=== PATIENT | female | born 2000 | race Caucasian/White ===

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

== ENCOUNTER 2019-05-27 17:13 | Emergency (ER) | payer BC, MEDICAID ==
[~2019-05-27] VITALS: Ht 165.1 cm; Wt 101.0 kg
[2019-05-27 18:15] LABS: URINE HCG NEGATIVE (NEG)
[2019-05-27 18:23] LABS: CLARITY,URINE CLEAR (Clear); COLOR,URINE YELLOW (Yellow); GLUCOSE, URINE NEGATIVE (Neg); KETONES,URINE TRACE mg/dl (Neg); LEUKOCYTE ESTERASE ,URINE NEGATIVE (Neg); NITRITES, URINE NEGATIVE (Neg); OCCULT BLOOD,URINE TRACE-INTACT (Neg); PH,URINE 5.5 (4.8-8.0); PROTEIN,URINE NEGATIVE (Neg); UROBILINOGEN,URINE 0.2 E.U/dL (0.2-1.0)
[2019-05-27 18:25] LABS: UA COLLECTION TYPE CLN CATCH MIDSTREAM
[2019-05-27 18:30] LABS: BASOPHILS % (AUTO) 0.4 % (0-1); EOSINOPHILS % (AUTO) 0.3 % (0-6); HEMATOCRIT 37.2 % (35.0-45.0); HEMOGLOBIN 12.2 g/dl (12.0-16.0); LYMPHOCYTES # (AUTO) 2.3 X10'3 (1.1-4.8); MEAN CORPUSCULAR HEMOGLOBIN 25.5 PG (27.0-31.0); MEAN CORPUSCULAR HGB CONC 32.7 g/dL (33.0-36.5); MEAN CORPUSCULAR VOLUME 78.1 FL (78-98); MONOCYTES # (AUTO) 0.5 X10'3 (0-0.9); MONOCYTES % (AUTO) 6.4 % (2-12); NEUTROPHILS # (AUTO) 5.6 X10'3 (1.8-7.7); NEUTROPHILS % (AUTO) 65.9 % (42-75); PLATELET COUNT 327 X10'3 (140-440); RED BLOOD COUNT 4.77 X10'6 (4.20-5.60); RED CELL DISTRIBUTION WIDTH 14.2 % (11.5-14.5); WHITE BLOOD COUNT 8.5 X10'3 (4.5-11.0)
[2019-05-27 18:33] LABS: BACTERIA,URINE FEW /HPF (Neg); MUCUS STRANDS MODERATE /LPF (Neg); RBC,URINE 0-2 /HPF (0-2); SQUAMOUS EPITHELIAL CELL,UR FEW /LPF (FEW); WBC,URINE 0-4 /HPF (0-4)
[2019-05-27 18:44] LABS: ALANINE AMINOTRANSFERASE 70 U/L (12-78); ALBUMIN/GLOBULIN RATIO 0.9 (1.1-1.5); ALKALINE PHOSPHATASE 105 IU/L (20-180); ANION GAP 7 (8-16); ASPARTATE AMINO TRANSFERASE 37 U/L (10-37); BILIRUBIN,TOTAL 0.4 MG/DL (0.1-1.0); BLOOD UREA NITROGEN 8 MG/DL (7-18); BUN/CREATININE RATIO 12.7 (6.6-38.0); CALCIUM 9.1 MG/DL (8.5-10.1); CHLORIDE 105 MMOL/L (99-107); CREATININE 0.63 MG/DL (0.40-0.90); GLUCOSE 81 MG/DL (70-104); LIPASE 62 U/L (73-393); POTASSIUM 3.9 MMOL/L (3.5-5.1); SODIUM 139 MMOL/L (135-145); TOTAL CARBON DIOXIDE 27.2 MMOL/L (24-32); TOTAL PROTEIN 8.6 G/DL (6.4-8.2); eGFR > 90 ML/MIN
[2019-05-27] MEDS ORDERED: ondansetron 4mg rapidly disintigrating tab PO ONE (19:30)
[2019-05-27] MEDS ORDERED: ONDA4TAB6 PO (19:38)
[2019-05-27 19:50] VITALS: BP 131/87
== END 2019-05-27 19:53 | disposition home or self-care (01) ==
LOC: ER 17:14
DX: R10.11 Right upper quadrant pain (principal); R11.2 Nausea with vomiting, unspecified; Z88.6 Allergy status to analgesic agent
CPT/HCPCS: 36415; 80053; 81001; 81025; 83690; 85025; 99283

== ENCOUNTER 2019-09-12 01:32 | Emergency (ER) | payer BC ==
[~2019-09-12] VITALS: Ht 165.1 cm; Wt 90.9 kg
[~2019-09-12 01:32] MED LIST changes: +ONDA4TAB6 PO
[2019-09-12 02:22] LABS: CLARITY,URINE CLEAR (Clear); COLOR,URINE YELLOW (Yellow); GLUCOSE, URINE NEGATIVE (Neg); KETONES,URINE NEGATIVE (Neg); LEUKOCYTE ESTERASE ,URINE NEGATIVE (Neg); NITRITES, URINE NEGATIVE (Neg); OCCULT BLOOD,URINE LARGE (Neg); PROTEIN,URINE NEGATIVE (Neg); UROBILINOGEN,URINE 0.2 E.U/dL (0.2-1.0)
[2019-09-12 02:24] LABS: BASOPHILS % (AUTO) 0.5 % (0-1); EOSINOPHILS # (AUTO) 0.1 X10'3 (0-0.9); EOSINOPHILS % (AUTO) 0.6 % (0-6); HEMATOCRIT 39.1 % (35.0-45.0); HEMOGLOBIN 12.9 g/dl (12.0-16.0); LYMPHOCYTES # (AUTO) 3.2 X10'3 (1.1-4.8); LYMPHOCYTES % (AUTO) 33.1 % (21-51); MEAN CORPUSCULAR HEMOGLOBIN 25.7 PG (27.0-31.0); MEAN CORPUSCULAR HGB CONC 33.1 g/dL (33.0-36.5); MEAN CORPUSCULAR VOLUME 77.6 FL (78-98); MEAN PLATELET VOLUME 8.1 FL (7.4-10.4); MONOCYTES # (AUTO) 0.6 X10'3 (0-0.9); MONOCYTES % (AUTO) 6.3 % (2-12); NEUTROPHILS # (AUTO) 5.8 X10'3 (1.8-7.7); NEUTROPHILS % (AUTO) 59.5 % (42-75); PLATELET COUNT 339 X10'3 (140-440); RED BLOOD COUNT 5.04 X10'6 (4.20-5.60); RED CELL DISTRIBUTION WIDTH 15.2 % (11.5-14.5); WHITE BLOOD COUNT 9.7 X10'3 (4.5-11.0)
[2019-09-12 02:26] LABS: UA COLLECTION TYPE CLN CATCH MIDSTREAM
[2019-09-12 02:27] LABS: BACTERIA,URINE NONE SEEN /HPF (Neg); RBC,URINE 0-2 /HPF (0-2); SQUAMOUS EPITHELIAL CELL,UR FEW /LPF (FEW); WBC,URINE NONE SEEN /HPF (0-4)
[2019-09-12 02:36] LABS: ALANINE AMINOTRANSFERASE 60 U/L (12-78); ALBUMIN 3.8 G/DL (3.4-5.0); ALBUMIN/GLOBULIN RATIO 0.9 (1.1-1.5); ALKALINE PHOSPHATASE 108 IU/L (20-180); ANION GAP 8 (8-16); ASPARTATE AMINO TRANSFERASE 27 U/L (10-37); BILIRUBIN,TOTAL 0.3 MG/DL (0.1-1.0); BLOOD UREA NITROGEN 10 MG/DL (7-18); BUN/CREATININE RATIO 13.2 (6.6-38.0); CALCIUM 9.1 MG/DL (8.5-10.1); CHLORIDE 107 MMOL/L (99-107); CREATININE 0.76 MG/DL (0.40-0.90); GLUCOSE 93 MG/DL (70-104); POTASSIUM 3.5 MMOL/L (3.5-5.1); SODIUM 142 MMOL/L (135-145); TOTAL CARBON DIOXIDE 27.3 MMOL/L (24-32); TOTAL PROTEIN 8.2 G/DL (6.4-8.2); eGFR > 90 ML/MIN
[2019-09-12 02:42] LABS: URINE HCG NEGATIVE (NEG)
--- NOTE | 2019-09-12 02:45 | NUR ---
PT STATES THAT SHE HAS HAD PSYCHIATRIC MEDICATIONS PRESCRIBED TO HER IN THE PAST, BUT SHE REFUSES TO TAKE THEM STATING THE MESSED WITH HER CONCENTRATION IN SCHOOL.
[2019-09-12 02:46] LABS: ETHANOL < 0.010 GM/DL (0.0-0.010)
[2019-09-12] MEDS ORDERED: NO HOME MEDS (02:47)
[2019-09-12 03:00] LABS: URINE AMPHETAMINE SCREEN NEGATIVE (Neg); URINE BARBITUATE SCREEN NEGATIVE (Neg); URINE BENZODIAZEPINES SCREEN NEGATIVE (Neg); URINE CANNABINOID SCREEN NEGATIVE (Neg); URINE COCAINE SCREEN NEGATIVE (Neg); URINE METHADONE SCREEN NEGATIVE (Neg); URINE OPIATE SCREEN NEGATIVE (Neg); URINE PHENCYCLIDINE SCREEN NEGATIVE (Neg)
--- NOTE | 2019-09-12 03:03 | NUR ---
Pt gives permission to discuss condition with her fiance, Emeli Yost . Pt does not want other members of her family to be given information at this time. Pt also states that she goes by the name. "Cora Melendez"
--- NOTE | 2019-09-12 06:40 | NUR ---
Patient is r esting in bed peacefully at this time. No distress observed. Patient has been moved over from the main ER to overflow. Will continue to monitor.
--- NOTE | 2019-09-12 08:33 | NUR ---
Patient wakes up to eat breakfast and requests a tampon. This request is accomodated. Patient is seen ambulating self to the bathroom. No distress observed.
--- NOTE | 2019-09-12 09:08 | NUR ---
Identifies as he/him pronouns and prefers to be called Floyd. Patient states that he has a hx of hospitalization and suicide attempts, last hospitalization was 2017. He reports that he was sent to a school to try to help with his mental states, and he states, "I thought I was past the suicidal ideations, I guess I am not". He reports intrusive thoughts of wanting to OD. He states that this is the best way to commit suicide. Denies any A/VH and states that he does sometimes does see "other rhealms when I am in ritual with my piotr iniguez, and they see the other rhealms too". Denies HI and states that the SI is constant and "never really goes away. I just got engaged on , and last night I was looking at a bottle of pills, got caught up in my thoughts, starting pouring out the pills to take them and then poured them back in the bottle, closed it and threw it across the room and called my family."
--- NOTE | 2019-09-12 10:08 | NUR ---
Patient is observed sitting up in bed talking on the phone. No distress observed.
--- NOTE | 2019-09-12 11:25 | NUR ---
primary nurse on break. pt is resing on her right side and is in no distress. rr even and unlabored.
--- NOTE | 2019-09-12 11:54 | NUR ---
Patient's Emeli ma at bedside, visiting with patient. No distress observed.
--- NOTE | 2019-09-12 12:14 | NUR ---
Sienna [facility] is at bedside evaluating patient.
--- NOTE | 2019-09-12 12:56 | NUR ---
pt wants any information released if requested to her parents mehnaz and chelita cr.
--- NOTE | 2019-09-12 13:58 | NUR ---
Patients fiance continues to be at bedside.
--- NOTE | 2019-09-12 14:12 | NUR ---
Patient is discharged from the unit ambulating self, no distress observed. Patient reprots that she still has SI and that these thoughts do not go away. Still plans to use overdose as the modality. She denies HI, A/VH. Discharge paperwork discussed with patient. questions were answered and patient verbalized unsderstanding. All items inventoried and in patients possession at time of discharge. Patient is a non-smoker.
[2019-09-12 14:17] VITALS: BP 121/78
== END 2019-09-12 14:15 ==
LOC: ER 01:33
DX: R45.851 Suicidal ideations (principal); F41.9 Anxiety disorder, unspecified; F31.9 Bipolar disorder, unspecified; F44.9 Dissociative and conversion disorder, unspecified; Z60.2 Problems related to living alone; Z88.8 Allergy status to other drugs, medicaments and biological substances; Z91.018 Allergy to other foods
CPT/HCPCS: 36415; 80053; 80305; 80320; 81001; 81025; 84443; 85025; 99285

== ENCOUNTER 2019-09-12 13:00 | Inpatient (IN) | payer BC ==
[~2019-09-12] VITALS: Ht 167.6 cm; Wt 107.3 kg
[~2019-09-12 13:00] MED LIST changes: +NO HOME MEDS
[2019-09-12] MEDS ORDERED: mag hydrox/Alum hydrox/simeth 30ml oral suspension PO PRN (14:05)
[2019-09-12] MEDS ORDERED: magnesium hydroxide 30ml (MOM) UD suspension PO PRN (14:05)
[2019-09-12] MEDS ORDERED: traZODone 50mg tablet PO PRN (14:05)
[2019-09-12] MEDS ORDERED: acetaminophen 325mg tablet PO PRN ×2 (14:05)
[2019-09-12] MEDS ORDERED: loperamide 2mg capsule PO PRN (14:05)
--- NOTE | 2019-09-12 14:44 | NUR ---
Admit note: Pt admitted to [facility] at 1420 on 5150 for DTS. Pt having suicidal thoughts with a plan to overdose. Pt states there are multiple medications at home to overdose on. Pt unable to develop a plan to remain safe in community. Pt has history of Bipolar, anxiety, Aspergers, depression, Borderline personality disorder, dissociative disorder.
[2019-09-12 17:20] VITALS: BP 140/77
--- NOTE | 2019-09-12 17:49 | NUR ---
Nursing Progress Note: LANIE MAGANA Legal hold: 5150 Client on involuntary status for DTS Report received from nurse with use of SBAR: DEBBIE Velez Why are they here: Pt admitted to [facility] at 1420 on 5150 for DTS. Pt having suicidal thoughts with a plan to overdose. Pt states there are multiple medications at home to overdose on. Pt unable to develop a plan to remain safe in community. Pt has history of Bipolar, anxiety, Aspergers, depression, Borderline personality disorder, dissociative disorder. Assessment What has happened this shift: Pt was calm and cooperative with 1:1 assessment at bedside. Answered most questions appropriately. States, This is not my first rodeo and spoke of the many hospitalizations he has had. When talking about mother pt will become defensive, pressured, sarcastic and condescending. He reports being the black sheep of the family stating that his mother and father paid a lot of money to make my twin siblings who are their pride and awilda and that he knows they wish he would just disappear. Pt spoke of being sent to [place] for a conversion school where they grouped all the gays together so we just had lots of sex and bullshitted our way through the therapy crap. 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 Pt reports recently getting engaged and plans on her moving in soon. Has two therapy cats at home and inquires whether fiance can bring them to visit. Pt advised of unit rules. Pt reports he doesnt feel safe if he left this building and will likely attempt to end his life in any means possible. Main concerns are mother who is intrusive, demanding and doesnt understand or care to understand me. Pt reports, My mother is threatening to have me conserved because my house is dirty. Pt admits that his house is filthy and he needs to clean it but has been unable to d/t lack of energy r/t current depression. RN educated pt on criteria for LPS. Pt is irritated that mother expects him to thrive on allowance of $200/month. Denies any current needs at this time. S/I, H/I: Confirms SI with plan to OD A/VH: Denies Sleep: n/a ADL's: independent Group attendance: n/a Were meds taken: n/a Any med S/E: n/a Mental Status Exam Appearance: clean, good hygiene, glasses Eye contact: Direct Behavior: cooperative Speech: Soft, normal rate & rhythm Mood: depressed Affect: congruent Thought process: linear Thought Content: depression, mother, fiance, cats Cognition: A&O X4 Insight: Good Judgment: Poor Interventions PRN's used: none Therapeutic interventions: Ensured contract for safety, maintained a safe and supportive environment, provided clear and simple instructions, monitored behaviors and need for intervention, encouraged independent performance of ADLs, maintained fall precautions, and maintained Q 15min safety checks. Restraints/seclusion/emergency medication: N/A Justification of Continued Inpatient Treatment: Pt. continues to require a safe and supportive environment and medication adjustments for stabilization to prevent rehospitalization.
[2019-09-12 19:30] VITALS: BP 145/81
--- NOTE | 2019-09-13 03:46 | NUR ---
Nursing Progress Note: LANIE MAGANA Legal hold: 5150 Client on involuntary status for DTS Report received from nurse with use of SBAR: DEBBIE Velez Why are they here: Pt admitted to [facility] at 1420 on 5150 for DTS. Pt having suicidal thoughts with a plan to overdose. Pt states there are multiple medications at home to overdose on. Pt unable to develop a plan to remain safe in community. Pt has history of Bipolar, anxiety, Aspergers, depression, Borderline personality disorder, dissociative disorder. Assessment What has happened this shift: Pt up on unit in group room doing a puzzle at start of shift. Vague answers admits Depression and SI but no plan. Demeanor incongruent while endorsing SI smiling and laughing. Pt not willing to talk much this shift. Did not take any medications only has PRN medications ordered. S/I, H/I: Confirms SI A/VH: Denies Sleep: Asleep at this time ADL's: independent Group attendance: n/a Were meds taken: n/a Any med S/E: n/a Mental Status Exam Appearance: clean, good hygiene, glasses Eye contact: Direct Behavior: cooperative Speech: Soft, normal rate & rhythm Mood: depressed Affect: incongruent Thought process: linear Thought Content: depression, mother, fiance, cats Cognition: A&O X4 Insight: Good Judgment: Poor Interventions PRN's used: none Therapeutic interventions: Ensured contract for safety, maintained a safe and supportive environment, provided clear and simple instructions, monitored behaviors and need for intervention, encouraged independent performance of ADLs, maintained fall precautions, and maintained Q 15min safety checks. Restraints/seclusion/emergency medication: N/A Justification of Continued Inpatient Treatment: Pt. continues to require a safe and supportive environment and medication adjustments for stabilization to prevent rehospitalization.
[2019-09-13 07:00] VITALS: BP 113/64
[2019-09-13] MEDS: hydrOXYzine 25 MG tablet PO PRN (11:08)
[2019-09-13 12:56] LABS: CHOL/HDL RATIO 4.8 (0.00-4.99); CHOLESTEROL 149 MG/DL (0-200); HDL CHOLESTEROL 31 MG/DL (35-60); LDL CHOLESTEROL 105 MG/DL (50-100); TRIGLYCERIDES 121 MG/DL (20-135)
--- NOTE | 2019-09-13 15:40 | NUR ---
PSYCHOSOCIAL ASSESSMENT Erin is a 18 y/o female who prefers to be called "Floyd" and referred to as a male. Floyd has been living in an apartment that is paid for by his parents who live in [place]. Floyd graduated from a residential care program in [place] and moved to [place] to attend [employer]. He initially lived in the dorms and was kicked out 6 weeks later. He was previously kicked out of another living situation due to her poor cleanliness. Floyd reported someone had left a bottle of medication at his apartment and he poured the pills in his hand and realized what he had done. He then called his grandparents in [place] who called police. He was unable to identify a precipitant and reported chronic suicidal ideation. He reported feeling quite "hopeless". Throughout the conversation he blamed his parents and reported his mom is controlling and does not like his jacob friends. He was worried about staying in the hospital for 30 days and worried he would get transferred to a facility in [place]. Floyd was quite dramatic in his presentation as well as blunt and bordered on being rude to physician underwriter. It is unclear if Floyd will be able to return to his apartment. His mother reported it was filthy and Floyd reported it may be considered "uninhabitable". Floyd currently does not have a mental health provider. He was seeing a therapist at one point at [facility]. LES [place] Addendum: 09/13/19 at 1541 by Bee Jiménez SS Amended: Links added.
--- NOTE | 2019-09-13 16:09 | NUR ---
Nursing Progress Note: CHUYSNEHA MAGANA Legal hold: 5150 Client on involuntary status for DTS Report received from nurse with use of SBAR: FREDERICK Velez Why are they here: Pt admitted to [facility] at 1420 on 5150 for DTS. Pt having suicidal thoughts with a plan to overdose. Pt states there are multiple medications at home to overdose on. Pt unable to develop a plan to remain safe in community. Pt has history of Bipolar, anxiety, Aspergers, depression, Borderline personality disorder, dissociative disorder. Assessment What has happened this shift: Pt sleeping in bed at change of shift. Reports sleeping well last night. Pt amendable to do 1:1 assessment at bedside. He is very blunt and forthcoming with information requested. He continues to endorse SI with intent. Reports depression is really bad. Pt continues to harbor volatile feelings towards his mother. Pt visited with francesca today which ended up being distressing for him because francesca let him know that mother will not be paying for his apartment anymore and that he is being placed on a 30 day hold. RN attempted to educate pt on 5[address] and [address] proceedings but pt was unwilling to listen d/t acute anxiety. RN dispensed PRN Atarax which was effective. Pt later found in his room wrapped in a blanket. Pt reports he believes that the social scientist, didnt like me or the answers that I gave her. We discussed how his conversations are often very blunt in nature and he reports, I dont like to sugar coat anything, its a waste of energy. Pt reports that he is [place] so he leaves a portion of food on his plate at every meal as a giving or sacrifice to his God and explains how he has rituals every full long involving candles and pigs blood infused foods. Pt had a phone call with his mother which was loud and hostile in nature. Mother will no longer be paying his rent. Pts mother is attempting to find housing for his cats in the process of cleaning his apartment out. Pt was impatient and demanded to get books and clothes that francesca left for him during visit after RN explained that the things needed to be inventoried. He stated, "She brought it hours ago!" He was unhappy with my response and walked away quickly in a overly dramatic fashion. Later found sleeping in bed under the covers. S/I, H/I: Confirms SI with intent A/VH: Denies Sleep: 7.75hrs NOC ADL's: independent Group attendance: Yes Were meds taken: n/a Any med S/E: n/a Mental Status Exam Appearance: clean, good hygiene, glasses Eye contact: Direct Behavior: cooperative, anxious Speech: Soft, normal rate & rhythm Mood: Im freaking out Affect: incongruent at times, mostly flat Thought process: linear Thought Content: depression, mother, fiance, cats Cognition: A&O X4 Insight: Fair Judgment: Poor Interventions PRN's used: Atarax X1 Therapeutic interventions: Ensured contract for safety, maintained a safe and supportive environment, provided clear and simple instructions, monitored behaviors and need for intervention, encouraged independent performance of ADLs, maintained fall precautions, and maintained Q 15min safety checks. Restraints/seclusion/emergency medication: N/A Justification of Continued Inpatient Treatment: Pt. continues to require a safe and supportive environment and medication adjustments for stabilization to prevent rehospitalization.
[2019-09-13 20:42] VITALS: BP 120/69
--- NOTE | 2019-09-13 21:22 | NUR ---
Nursing Progress Note: LANIE MAGANA Legal hold: 5150 Client on involuntary status for DTS Report received from nurse with use of SBAR: FREDERICK Velez Why are they here: Pt admitted to [facility] at 1420 on 5150 for DTS. Pt having suicidal thoughts with a plan to overdose. Pt states there are multiple medications at home to overdose on. Pt unable to develop a plan to remain safe in community. Pt has history of Bipolar, anxiety, Aspergers, depression, Borderline personality disorder, dissociative disorder. Assessment What has happened this shift: Pt was up in group room playing games with a peer at shift change 1:1 assessment in group room. He is very blunt and forthcoming with information requested. He continues to endorse SI with intent. Reports depression is really bad. Pt continues to harbor volatile feelings towards his mother. S/I, H/I: Confirms SI with intent A/VH: Denies Sleep: 7.75hrs NOC ADL's: independent Group attendance: Yes Were meds taken: n/a Any med S/E: n/a Mental Status Exam Appearance: clean, good hygiene, glasses Eye contact: Direct Behavior: cooperative, anxious Speech: Soft, normal rate & rhythm Mood: Im freaking out Affect: incongruent at times, mostly flat Thought process: linear Thought Content: depression, mother, fiance, cats Cognition: A&O X4 Insight: Fair Judgment: Poor Interventions PRN's used: Atarax X1 Therapeutic interventions: Ensured contract for safety, maintained a safe and supportive environment, provided clear and simple instructions, monitored behaviors and need for intervention, encouraged independent performance of ADLs, maintained fall precautions, and maintained Q 15min safety checks. Restraints/seclusion/emergency medication: N/A Justification of Continued Inpatient Treatment: Pt. continues to require a safe and supportive environment and medication adjustments for stabilization to prevent rehospitalization.
[2019-09-14 08:00] VITALS: BP 125/56
[2019-09-14] MEDS: venlafaxine XR 75mg capsule (Q24H) PO SCH (08:35)
[2019-09-14 20:00] VITALS: BP 148/73
[2019-09-14] MEDS: hydrOXYzine 25 MG tablet PO PRN (21:31)
--- NOTE | 2019-09-14 21:56 | NUR ---
Nursing Progress Note: LANIE MAGANA Legal hold: 5150 Client on involuntary status for DTS Report received from nurse with use of SBAR: FREDERICK Velez Why are they here: Pt admitted to [facility] at 1420 on 5150 for DTS. Pt having suicidal thoughts with a plan to overdose. Pt states there are multiple medications at home to overdose on. Pt unable to develop a plan to remain safe in community. Pt has history of Bipolar, anxiety, Aspergers, depression, Borderline personality disorder, dissociative disorder. Assessment What has happened this shift: Pt was up in group room playing games with a peer at shift change 1:1 assessment in group room. He is very blunt and forthcoming with information requested. He continues to endorse SI with intent. Reports depression is really bad. Pt continues to harbor volatile feelings towards his mother. Pt c/o anxiety prn given. S/I, H/I: Confirms SI with intent A/VH: Denies Sleep: 7.75hrs NOC ADL's: independent Group attendance: Yes Were meds taken: n/a Any med S/E: n/a Mental Status Exam Appearance: clean, good hygiene, glasses Eye contact: Direct Behavior: cooperative, anxious Speech: Soft, normal rate & rhythm Mood: Im freaking out Affect: incongruent at times, mostly flat Thought process: linear Thought Content: depression, mother, fiance, cats Cognition: A&O X4 Insight: Fair Judgment: Poor Interventions PRN's used: Atarax X1 Therapeutic interventions: Ensured contract for safety, maintained a safe and supportive environment, provided clear and simple instructions, monitored behaviors and need for intervention, encouraged independent performance of ADLs, maintained fall precautions, and maintained Q 15min safety checks. Restraints/seclusion/emergency medication: N/A Justification of Continued Inpatient Treatment: Pt. continues to require a safe and supportive environment and medication adjustments for stabilization to prevent rehospitalization.
[2019-09-15 07:58] VITALS: BP 123/68
[2019-09-15] MEDS: venlafaxine XR 75mg capsule (Q24H) PO SCH (07:58)
[2019-09-15] MEDS ORDERED: VENL75CA61 PO ×2 (11:51→11:56)
[2019-09-15] MEDS ORDERED: HYDR50TA65 PO (11:51)
--- NOTE | 2019-09-15 13:10 | NUR ---
Nursing Discharge Note: Patient is discharged at 1310. She planned to catch the bus over to the [facility]. Written and verbal discharge instructions provided to patient, she is allowed opportunity to ask questions and denies having any. Patient will schedule own appointments to follow up with psychiatrist therapist. All belongings provided back to patient. Patient is under no acute physical or emotional distress. She has improved since admit, denies depression and denies S/I.
== END 2019-09-15 13:10 | disposition short-term general hospital (02) | DRG 885 ==
LOC: ADULT MH 13:00
PROVIDERS: ADMIT Psychiatry & Neurology Psychiatry; ATTEND Psychiatry & Neurology Psychiatry
DX: F33.2 Major depressive disorder, recurrent severe without psychotic features (principal); R45.851 Suicidal ideations; F17.200 Nicotine dependence, unspecified, uncomplicated; F41.1 Generalized anxiety disorder; F60.9 Personality disorder, unspecified; Z88.8 Allergy status to other drugs, medicaments and biological substances
CPT/HCPCS: 36415; 80061; 83036; 87081; 99285; Z7610

== ENCOUNTER 2020-08-16 15:52 | Emergency (ER) | payer BC ==
[~2020-08-16] VITALS: Ht 170.2 cm; Wt 113.6 kg
[~2020-08-16 15:52] MED LIST changes: +HYDR50TA65 PO; -ONDA4TAB6 PO; -ONDA8TAB9 PO; +VENL75CA61 PO
[2020-08-16 16:35] LABS: BASOPHILS % (AUTO) 0.5 % (0-1); EOSINOPHILS # (AUTO) 0.1 X10'3 (0-0.9); EOSINOPHILS % (AUTO) 0.9 % (0-6); HEMATOCRIT 41.3 % (35.0-45.0); HEMOGLOBIN 13.8 g/dl (12.0-16.0); LYMPHOCYTES # (AUTO) 2.5 X10'3 (1.1-4.8); LYMPHOCYTES % (AUTO) 29.3 % (21-51); MEAN CORPUSCULAR HEMOGLOBIN 27.4 PG (27.0-31.0); MEAN CORPUSCULAR HGB CONC 33.3 g/dL (33.0-36.5); MEAN CORPUSCULAR VOLUME 82.2 FL (78-98); MEAN PLATELET VOLUME 7.8 FL (7.4-10.4); MONOCYTES # (AUTO) 0.6 X10'3 (0-0.9); MONOCYTES % (AUTO) 7.2 % (2-12); NEUTROPHILS # (AUTO) 5.3 X10'3 (1.8-7.7); NEUTROPHILS % (AUTO) 62.1 % (42-75); PLATELET COUNT 324 X10'3 (140-440); RED BLOOD COUNT 5.03 X10'6 (4.20-5.60); RED CELL DISTRIBUTION WIDTH 13.8 % (11.5-14.5); WHITE BLOOD COUNT 8.6 X10'3 (4.5-11.0)
[2020-08-16] MEDS ORDERED: metoclopramide 10mg tablet PO ONE (16:35)
[2020-08-16 16:45] LABS: ALANINE AMINOTRANSFERASE 91 U/L (12-78); ALBUMIN 3.9 G/DL (3.4-5.0); ALBUMIN/GLOBULIN RATIO 0.8 (1.1-1.5); ALKALINE PHOSPHATASE 100 IU/L (20-180); AMYLASE 39 U/L (25-115); ANION GAP 12 (8-16); ASPARTATE AMINO TRANSFERASE 42 U/L (10-37); BILIRUBIN,TOTAL 0.3 MG/DL (0.1-1.0); BLOOD UREA NITROGEN 11 MG/DL (7-18); BUN/CREATININE RATIO 16.7 (6.6-38.0); CALCIUM 8.9 MG/DL (8.5-10.1); CHLORIDE 105 MMOL/L (99-107); CREATININE 0.66 MG/DL (0.40-0.90); GLUCOSE 87 MG/DL (70-104); LIPASE 76 U/L (73-393); POTASSIUM 3.6 MMOL/L (3.5-5.1); SODIUM 144 MMOL/L (135-145); TOTAL CARBON DIOXIDE 27.3 MMOL/L (24-32); TOTAL PROTEIN 8.7 G/DL (6.4-8.2); eGFR > 90 ML/MIN
[2020-08-16 17:00] LABS: URINE HCG NEGATIVE (NEG)
[2020-08-16 17:14] LABS: CLARITY,URINE CLOUDY (Clear); COLOR,URINE YELLOW (Yellow); GLUCOSE, URINE NEGATIVE (Neg); KETONES,URINE NEGATIVE (Neg); LEUKOCYTE ESTERASE ,URINE NEGATIVE (Neg); NITRITES, URINE NEGATIVE (Neg); OCCULT BLOOD,URINE NEGATIVE (Neg); PH,URINE 6.5 (4.8-8.0); PROTEIN,URINE NEGATIVE (Neg)
[2020-08-16 17:15] LABS: UA COLLECTION TYPE CLN CATCH MIDSTREAM
[2020-08-16 17:20] LABS: BACTERIA,URINE 1+ /HPF (Neg); MUCUS STRANDS MODERATE /LPF (Neg); RBC,URINE 0-2 /HPF (0-2); SQUAMOUS EPITHELIAL CELL,UR MODERATE /LPF (FEW); WBC,URINE 0-4 /HPF (0-4)
[2020-08-16] MEDS ORDERED: ONDA4TAB6 PO (18:29)
[2020-08-16 18:47] VITALS: BP 127/61
== END 2020-08-16 18:50 | disposition home or self-care (01) ==
LOC: ER 15:52
DX: R10.31 Right lower quadrant pain (principal); R11.0 Nausea; K59.00 Constipation, unspecified; R19.7 Diarrhea, unspecified; F41.9 Anxiety disorder, unspecified; F31.9 Bipolar disorder, unspecified; Z72.89 Other problems related to lifestyle; Z60.2 Problems related to living alone; Z88.8 Allergy status to other drugs, medicaments and biological substances; Z91.018 Allergy to other foods; Z79.899 Other long term (current) drug therapy
CPT/HCPCS: 36415; 76700; 80053; 81001; 81025; 82150; 83690; 84145; 85025; 99284; J8597